=== PATIENT | female | born 1945 | race Caucasian/White ===

== ENCOUNTER 2019-05-08 21:58 | Outpatient (REF) | payer OTHER, SELFPAY ==
[2019-05-08 22:51] LABS: Hemoglobin A1C 6.5 % (4.5-6.2)
[2019-05-08 23:02] LABS: ALT 19 U/L (12-78); AST 19 U/L (15-37); Albumin 3.6 g/dL (3.4-5.0); Alkaline Phosphatase 121 U/L (46-116); Anion Gap 6.6 mmol/L (3-11); BUN 19 mg/dL (7-18); Bilirubin, Total 0.4 mg/dL (0.2-1.0); CO2 32.4 mmol/L (21.0-32.0); Calcium 9.7 mg/dL (8.5-10.1); Calculated LDL 95 mg/dL; Chloride 100 mmol/L (98-107); Cholesterol 186 mg/dL (50-200); Estimated GFR 48.82 (mL/min/1.73m2); Glucose 113 mg/dL (70-100); HDL Cholesterol 42 mg/dL (40-60); Potassium 5.8 mmol/L (3.5-5.1); Sodium 139 mmol/L (136-145); Total Protein 7.7 g/dL (6.4-8.2); Triglyceride 246 mg/dL (30-150)
== END 2019-05-08 22:18 ==
LOC: NCHCN 21:58
PROVIDERS: PCP Nurse Practitioner Family; Visit Provider Nurse Practitioner Family
DX: I10 Essential (primary) hypertension (principal); R73.09 Other abnormal glucose; E78.5 Hyperlipidemia, unspecified
CPT/HCPCS: 80053; 80061; 83721; 83036

== ENCOUNTER 2019-05-22 10:50 | Outpatient (REF) | payer OTHER, SELFPAY ==
[2019-05-22 20:32] LABS: Anion Gap 6.9 mmol/L (3-11); BUN 21 mg/dL (7-18); CO2 35.1 mmol/L (21.0-32.0); CREATININE 1.31 mg/dL (0.55-1.02); Calcium 9.8 mg/dL (8.5-10.1); Chloride 103 mmol/L (98-107); Estimated GFR 39.91 (mL/min/1.73m2); Glucose 152 mg/dL (70-100); Potassium 5.7 mmol/L (3.5-5.1); Sodium 145 mmol/L (136-145)
== END 2019-05-22 11:10 ==
LOC: NCHCN 10:50
PROVIDERS: PCP Nurse Practitioner Family; Visit Provider Nurse Practitioner Family
DX: Z86.39 Personal history of other endocrine, nutritional and metabolic disease (principal)
CPT/HCPCS: 80048

== ENCOUNTER 2019-06-12 12:24 | Outpatient (REF) | payer OTHER, SELFPAY ==
[2019-06-12 21:27] LABS: Anion Gap 6.9 mmol/L (3-11); BUN 21 mg/dL (7-18); CO2 32.1 mmol/L (21.0-32.0); CREATININE 1.12 mg/dL (0.55-1.02); Calcium 9.2 mg/dL (8.5-10.1); Chloride 101 mmol/L (98-107); Estimated GFR 47.82 (mL/min/1.73m2); Glucose 106 mg/dL (70-100); Potassium 4.7 mmol/L (3.5-5.1); Sodium 140 mmol/L (136-145)
== END 2019-06-12 12:44 ==
LOC: NCHCN 12:24
PROVIDERS: PCP Nurse Practitioner Family; Visit Provider Nurse Practitioner Family
DX: I10 Essential (primary) hypertension (principal); E11.9 Type 2 diabetes mellitus without complications; N18.3 Chronic kidney disease, stage 3 (moderate); E87.5 Hyperkalemia
CPT/HCPCS: 80048

== ENCOUNTER 2019-09-11 22:16 | Outpatient (REF) | payer OTHER, SELFPAY ==
[2019-09-11 23:09] LABS: COMMENT (LAB VIEW ONLY) 204.52 mg/dL; Microalb ug/mg Crea 9.4 ug/mg Cr
== END 2019-09-11 22:36 ==
LOC: NCHCN 22:16
PROVIDERS: PCP Nurse Practitioner Family; Visit Provider Nurse Practitioner Family
DX: E11.9 Type 2 diabetes mellitus without complications (principal); I10 Essential (primary) hypertension
CPT/HCPCS: 82043; 82570

== ENCOUNTER 2019-09-25 22:34 | Outpatient (REF) | payer OTHER, SELFPAY ==
[2019-09-25 22:52] LABS: Anion Gap 4.9 mmol/L (3-11); BUN 15 mg/dL (7-18); CO2 35.1 mmol/L (21.0-32.0); CREATININE 0.99 mg/dL (0.55-1.02); Calcium 9.3 mg/dL (8.5-10.1); Chloride 102 mmol/L (98-107); Estimated GFR 55.14 (mL/min/1.73m2); Glucose 97 mg/dL (74-106); Potassium 4.5 mmol/L (3.5-5.1); Sodium 142 mmol/L (136-145)
== END 2019-09-25 22:54 ==
LOC: NCHCN 22:34
PROVIDERS: PCP Nurse Practitioner Family; Visit Provider Nurse Practitioner Family
DX: I10 Essential (primary) hypertension (principal)
CPT/HCPCS: 80048

== ENCOUNTER 2020-08-12 15:56 | Outpatient (REF) | payer OTHER, SELFPAY ==
[2020-08-12 21:22] LABS: COMMENT (LAB VIEW ONLY) 193.17 mg/dL; Microalb ug/mg Crea 8.3 ug/mg Cr
[2020-08-12 21:29] LABS: Anion Gap 5.8 mmol/L (3-11); BUN 26 mg/dL (7-18); CO2 32.2 mmol/L (21.0-32.0); CREATININE 1.49 mg/dL (0.55-1.02); Calcium 9.2 mg/dL (8.5-10.1); Chloride 101 mmol/L (98-107); Glucose 121 mg/dL (74-106); Potassium 4.5 mmol/L (3.5-5.1); Sodium 139 mmol/L (136-145); Vitamin B12 248 pg/mL (193-986)
== END 2020-08-12 16:16 ==
LOC: NCHCN 15:56
PROVIDERS: PCP Nurse Practitioner Family; Visit Provider Nurse Practitioner Family
DX: E11.9 Type 2 diabetes mellitus without complications (principal); E66.01 Morbid (severe) obesity due to excess calories; I12.9 Hypertensive chronic kidney disease with stage 1 through stage 4 chronic kidney disease, or unspecified chronic kidney disease; N18.30 Chronic kidney disease, stage 3 unspecified; F32.9 Major depressive disorder, single episode, unspecified; Z51.81 Encounter for therapeutic drug level monitoring
CPT/HCPCS: 80048; 82043; 82570; 82607

== ENCOUNTER 2020-08-19 11:00 | Outpatient (REF) | payer OTHER, SELFPAY ==
[2020-08-19 21:20] LABS: Anion Gap 6.9 mmol/L (3-11); BUN 13 mg/dL (7-18); CO2 32.1 mmol/L (21.0-32.0); CREATININE 1.45 mg/dL (0.55-1.02); Calcium 9.2 mg/dL (8.5-10.1); Chloride 103 mmol/L (98-107); Glucose 104 mg/dL (74-106); Potassium 4.5 mmol/L (3.5-5.1); Sodium 142 mmol/L (136-145)
== END 2020-08-19 11:20 ==
LOC: NCHCN 11:00
PROVIDERS: PCP Nurse Practitioner Family; Visit Provider Nurse Practitioner Family
DX: N18.30 Chronic kidney disease, stage 3 unspecified (principal)
CPT/HCPCS: 80048

== ENCOUNTER 2021-02-17 14:10 | Outpatient (REF) | payer OTHER, SELFPAY ==
[2021-02-17 21:15] LABS: HCT 40.4 % (36.0-46.0); HGB 12.4 g/dL (11.2-15.7); MCH 28.8 pg (27.0-33.0); MCHC 30.7 % (32.0-36.0); MCV 93.7 fL (80-95); MPV 10.4 fL (8.0-11.0); Platelet Count 411 10^3/uL (130-400); RBC 4.31 10^6/uL (3.93-5.22); RDW 13.2 % (11.7-14.6); RDW-SD 45.5 fL; WBC 9.93 10^3/uL (4.4-10.8)
[2021-02-17 21:33] LABS: Anion Gap 8.6 mmol/L (3-11); BUN 18 mg/dL (7-18); CO2 30.4 mmol/L (21.0-32.0); CREATININE 1.5 mg/dL (0.55-1.02); Calcium 9.5 mg/dL (8.5-10.1); Chloride 102 mmol/L (98-107); Estimated GFR 34.04 (mL/min/1.73m2); Glucose 113 mg/dL (74-106); Magnesium 1.7 mg/dL (1.8-2.4); Potassium 4.9 mmol/L (3.5-5.1); Sodium 141 mmol/L (136-145)
[2021-02-17 21:44] LABS: PHOSPHORUS 3.5 mg/dL (2.6-4.7)
[2021-02-17 21:45] LABS: PROTEIN 29.4 mg/dL
[2021-02-17 21:48] LABS: COMMENT (LAB VIEW ONLY) 333.42 mg/dL; Prot/Crea Ur Ratio 0.08
== END 2021-02-17 14:11 | disposition home or self-care (01) ==
LOC: NCHCN 14:10
PROVIDERS: PCP Nurse Practitioner Family; Visit Provider Nurse Practitioner Family
DX: N18.30 Chronic kidney disease, stage 3 unspecified (principal)
CPT/HCPCS: 80048; 85027; 82565; 83735; 84100; 84156

== ENCOUNTER 2021-05-26 11:19 | Outpatient (REF) | payer OTHER, SELFPAY ==
[2021-05-26 20:58] LABS: BUN 22 mg/dL (7-18); CREATININE 1.4 mg/dL (0.55-1.02); Calcium 9.4 mg/dL (8.5-10.1); Chloride 103 mmol/L (98-107); Estimated GFR 36.76 (mL/min/1.73m2); Glucose 115 mg/dL (74-106); Potassium 4.9 mmol/L (3.5-5.1); Sodium 142 mmol/L (136-145)
== END 2021-05-26 11:20 | disposition home or self-care (01) ==
LOC: NCHCN 11:19
PROVIDERS: PCP Nurse Practitioner Family; Visit Provider Nurse Practitioner Family
DX: E11.9 Type 2 diabetes mellitus without complications (principal); N18.30 Chronic kidney disease, stage 3 unspecified
CPT/HCPCS: 80048

== ENCOUNTER 2021-07-14 16:51 | Outpatient (REF) | payer OTHER, SELFPAY ==
[2021-07-14 22:38] LABS: Anion Gap 2.9 mmol/L (3-11); BUN 17 mg/dL (7-18); CO2 34.1 mmol/L (21.0-32.0); CREATININE 1.5 mg/dL (0.55-1.02); Calcium 9.5 mg/dL (8.5-10.1); Chloride 104 mmol/L (98-107); Estimated GFR 33.94 (mL/min/1.73m2); Glucose 93 mg/dL (74-106); Magnesium 1.8 mg/dL (1.8-2.4); Sodium 141 mmol/L (136-145)
[2021-07-14 22:40] LABS: COMMENT (LAB VIEW ONLY) 183.37 mg/dL; Microalb ug/mg Crea 12.5 ug/mg Cr
[2021-07-14 23:09] LABS: Hemoglobin A1C 6.1 % (<5.7)
== END 2021-07-14 16:52 | disposition home or self-care (01) ==
LOC: NCHCN 16:51
PROVIDERS: PCP Nurse Practitioner Family; Visit Provider Nurse Practitioner Family
DX: E11.9 Type 2 diabetes mellitus without complications (principal)
CPT/HCPCS: 80048; 82043; 82570; 83036; 83735

== ENCOUNTER 2021-10-05 10:25 | Outpatient (REF) | payer OTHER, SELFPAY ==
[2021-10-05 15:24] LABS: Anion Gap 5.6 mmol/L (3-11); BUN 21 mg/dL (7-18); CO2 32.4 mmol/L (21.0-32.0); CREATININE 1.1 mg/dL (0.55-1.02); Calcium 9.3 mg/dL (8.5-10.1); Chloride 102 mmol/L (98-107); Estimated GFR 48.55 (mL/min/1.73m2); Glucose 121 mg/dL (74-106); Potassium 4.7 mmol/L (3.5-5.1); Sodium 140 mmol/L (136-145)
== END 2021-10-05 10:26 | disposition home or self-care (01) ==
LOC: NCHCN 10:25
PROVIDERS: PCP Nurse Practitioner Family; Visit Provider Nurse Practitioner Family
DX: N18.30 Chronic kidney disease, stage 3 unspecified (principal)
CPT/HCPCS: 80048

== ENCOUNTER 2022-01-05 15:12 | Outpatient (REF) | payer OTHER, SELFPAY ==
[2022-01-05 16:52] LABS: HCT 38.5 % (36.0-46.0); HGB 11.2 g/dL (11.2-15.7); MCH 26.1 pg (27.0-33.0); MCHC 29.1 % (32.0-36.0); MCV 89.7 fL (80-95); MPV 10.6 fL (8.0-11.0); Platelet Count 417 10^3/uL (130-400); RBC 4.29 10^6/uL (3.93-5.22); RDW 14.5 % (11.7-14.6); RDW-SD 47.8 fL; WBC 9.56 10^3/uL (4.4-10.8)
[2022-01-05 17:16] LABS: ALT 13 U/L (14-59); AST 11 U/L (15-37); Albumin 3.4 g/dL (3.4-5.0); Alkaline Phosphatase 157 U/L (46-116); BUN 13 mg/dL (7-18); Bilirubin, Total 0.3 mg/dL (0.2-1.0); CREATININE 1.2 mg/dL (0.55-1.02); Calcium 9.2 mg/dL (8.5-10.1); Calculated LDL 93 mg/dL (<100); Chloride 103 mmol/L (98-107); Cholesterol 179 mg/dL (<200); Estimated GFR 43.91 (mL/min/1.73m2); Glucose 111 mg/dL (74-106); HDL Cholesterol 46 mg/dL (40-60); Potassium 4.7 mmol/L (3.5-5.1); Sodium 143 mmol/L (136-145); Total Protein 7.3 g/dL (6.4-8.2); Triglyceride 204 mg/dL (<150)
== END 2022-01-05 15:13 | disposition home or self-care (01) ==
LOC: NCHCN 15:12
PROVIDERS: PCP Nurse Practitioner Family; Visit Provider Nurse Practitioner Family
DX: E11.9 Type 2 diabetes mellitus without complications (principal); I10 Essential (primary) hypertension; I25.10 Atherosclerotic heart disease of native coronary artery without angina pectoris; E78.5 Hyperlipidemia, unspecified; E66.01 Morbid (severe) obesity due to excess calories
CPT/HCPCS: 80053; 80061; 85027

== ENCOUNTER 2022-04-02 17:03 | Outpatient (REF) | payer MEDICARE, SELFPAY ==
[2022-04-02 21:13] LABS: Alkaline Phosphatase 177 U/L (46-116); Calculated LDL 65 mg/dL (<100); Cholesterol 150 mg/dL (<200); HDL Cholesterol 47 mg/dL (40-60); Triglyceride 192 mg/dL (<150)
[2022-04-02 21:24] LABS: GGT 19 U/L (5-55)
== END 2022-04-02 17:04 | disposition home or self-care (01) ==
LOC: NCHCN 17:03
PROVIDERS: PCP Nurse Practitioner Family; Visit Provider Nurse Practitioner Family
DX: E78.5 Hyperlipidemia, unspecified (principal); N18.30 Chronic kidney disease, stage 3 unspecified; E11.9 Type 2 diabetes mellitus without complications; Z86.39 Personal history of other endocrine, nutritional and metabolic disease; E66.2 Morbid (severe) obesity with alveolar hypoventilation
CPT/HCPCS: 80061; 82977; 84075

== ENCOUNTER 2022-04-21 18:09 | Outpatient (REF) | payer MEDICARE, SELFPAY ==
[2022-04-21 22:18] LABS: PHOSPHORUS 3.9 mg/dL (2.6-4.7); TSH 2.18 uIU/mL (0.36-3.74)
[2022-04-22 05:30] LABS: Vitamin D 25 Total 34.3 ng/mL (30-100)
[2022-04-22 18:31] LABS: Parathyroid Hormone,Intact 181 pg/mL (19-88)
== END 2022-04-21 18:10 | disposition home or self-care (01) ==
LOC: NCHCN 18:09
PROVIDERS: PCP Nurse Practitioner Family; Visit Provider Nurse Practitioner Family
DX: R74.8 Abnormal levels of other serum enzymes (principal); Z13.228 Encounter for screening for other metabolic disorders; Z13.89 Encounter for screening for other disorder
CPT/HCPCS: 82306; 83970; 84100; 84443

== ENCOUNTER 2022-12-28 22:03 | Outpatient (REF) | payer MEDICARE, SELFPAY ==
--- OUTSIDE RECORDS SUMMARY | 2022-12-28 22:04 | XMS_ITS | CCD ---
Author Name Unknown Address [address] [place] [address] [id number] Organization Unknown Address [address] [place] [address] [id number] Care Team Providers Care Senior Interior Designer Name Role Phone VINAYAK RUELAS Attending Physician [phone] JOSE STEWART Er Physician [phone] EDGAR Blacno Registered Nurse [phone] HANNAH Blanco Registered Nurse [phone] Vital Signs Vital Sign Value Unit Date/Time Recent/Initial ? BMI (Body Mass Index) 50 kg/m^2 10/05/2021 11: 18 Initial VS Weight Measured 256 lbs 10/05/2021 11:18 Ini tial VS Height 60 in 10/05/2021 11:18 Initial VS BSA (Body Surface Area) 2.22 m^2 10/05/2021 1 1:18 Initial VS BP Systolic 173 mmHg 10/05/2021 11:18 Initial VS BP Diastolic 95 mmHg 10/05/2021 11:18 Initia l VS Respiratory Rate 14 bpm 10/05/2021 11:18 In itial VS Heart Rate 85 bpm 10/05/2021 11:18 Initial VS O2 % BldC Oximetry 98 % 10/05/2021 11:18 Initial VS Body Temperature 36.4 degrees 10/05/2021 11:18 In itial VS BP Systolic 150 mmHg 10/05/2021 11:47 Most Re cent VS BP Diastolic 90 mmHg 10/05/2021 11:47 Most R ecent VS Respiratory Rate 16 bpm 10/05/2021 11:[address] Recent VS Heart Rate 79 bpm 10/05/2021 11:47 Most Rec ent VS O2 % BldC Oximetry 100 % 10/05/2021 11:47 Most Recent VS Allergies Allergy Code Allergy Type Reaction Status No Known Allergies 0 No known allergies Active Procedures Procedure Code Procedure Type Date Closed Treatment, Shoulder D islocation, w/Manipulation; Requiring Anesthesia 99561 CPT History of Immunizations Immunization Code Date COVID-19, mRNA, LNP-S, PF, 100 mcg/0.5mL dose or 50 mcg/0.25mL dose 207 12/08/2020 Problems Problem Code Start Date Resolved Date Status Hypertension 55439492 Active Closed right shoulder dislocation 21568800705198510 Active Hypoxia 782094841 Active Hypercholesterolemia 29644520 10/23/2021 Reso lved Prediabetes 745507028 10/22/2021 Resolved High cholesterol 79101575 10/22/2021 Resolved Results Unknown or Not Available. Active Medications Medications Administered During Visit Medication Dose Units Frequency Route Date/Time of Last Dose FentaNYL INJ SDV: 100MCG/2ML 25 MCG X1 I [employer] SALESPERSON 10/05/2021 11:47 DIAZEPAM INJ SYRINGE: 10MG/2ML 2.5 MG X1 IVP 10/05/2021 11:42 Encounters Encounter Diagnosis Diagnosis Code Start Date Anterior subluxation of right humerus, initial e ncounter [id number] 10/05/2021 Social History Smoking Status Code Start Date End Date Never smoker [id number] Patient Decision Aids Unknown or Not Available. Discharge Instructions You were admitted to [facility] on 10/05/2021 11:14 with a principal diagnosis of Anterior subluxation of right humerus, initial encounter You had the following procedures done:Closed Treatment, Shoulder Dislocation, w/Manipulation; Requiring Anesthesia You were discharged from [facility] on 10/05/2021 15:40 Should you have any questions prior to discharge, please contact a member of your healthcare team. If you have left the hospital and have any questions, please contact your primary care physician. Chief Complaint and Reason For Visit Chief Complaint Date of Onset DISLOCATED SHOULDER Function Status Unknown or Not Available. Plan of Care Unknown or Not Available. Referral/Transition of Care Unknown or Not Available.
--- OUTSIDE RECORDS SUMMARY | 2022-12-28 22:05 | XMS_ITS | CCD ---
Author Name Unknown Address [address] [place] [address] [phone] Organization Unknown Address [address] [place] [address] [phone] Care Team Providers Care Permastone Installer Name Role Phone ALICIA WU Attending Physician [phone] ALICIA WU Rounding (Secondary) Physician [phone] Vital Signs Unknown or Not Available. Allergies Allergy Code Allergy Type Reaction Status No Known Allergies 0 No known allergies Active Procedures Unknown or Not Available. History of Immunizations Immunization Code Date COVID-19, mRNA, LNP-S, PF, 100 mcg/0.5mL dose or 50 mcg/0.25mL dose 207 12/08/2020 Problems Problem Code Start Date Resolved Date Status Hypertension 45906595 Active Closed right shoulder dislocation 94002072508859858 Active Hypoxia 642299593 Active Hypercholesterolemia 05463641 10/23/2021 Reso lved Prediabetes 820438125 10/22/2021 Resolved High cholesterol 16984827 10/22/2021 Resolved Results BASIC METABOLIC PANEL (BMP) - Collect Date/Time: 10/19/2021 14:24 Test Name Code Test Result Test Units Test Ref Rang e GLUCOSE 2345-7 100 mg/dL L=70 H=116 BUN 3094-0 20 mg/dL L=6 H=25 CREATININE 2160-0 1.32 mg/dL L=0.51 H=0.95 SODIUM SERUM 2951-2 143 mmol/L L=136 H=145 POTASSIUM SERUM 2823-3 4.5 mmol/L L=3.4 H=5 .2 CHLORIDE SERUM 2075-0 103 mmol/L L=96 H=110 CARBON DIOXIDE (CO2) 2028-9 35 mmol/L L=22 H=34 ANION GAP 93071-0 5.3 mmol/L CALCIUM SERUM 16548-5 9.8 mg/dL L=8.2 H=10. 2 AGE 76 years eGFR (non-Afr.Amer.) 69850-4 39 mL/min eGFR (Afr-Chilean) 25694-4 48 mL/min C REACTIVE PROTEIN HIGH SENS ITIVITY* - Collect Date/Time: 10/19/2021 14:24 Test Name Code Test Result Test Units Test Ref Rang e CRP-HIGH SENS. 02510-7 18.52 mg/L L=0.00 H=3 .00 CRP-HIGH SENS 67930-3 1.85 mg/dL L=0.00 H=0. 30 CBC W/ DIFFERENTIAL* - Colle ct Date/Time: 10/19/2021 14:24 Test Name Code Test Result Test Units Test Ref Rang e WBC 6690-2 10.88 th/cmm L=5.00 H=10.00 NEUT % 71.6 % L=40.0 H=80.0 LYMPH % 19.7 % L=10.0 H=50.0 MONO % 20703-0 6.3 % L=2.0 H=12.0 EOS % 1.2 % L=0.0 H=8.0 BASO % 0.5 % L=0.0 H=3.0 IG % 2514-8 0.7 % L=0.0 H=1.1 NRBC % 32994-4 0.0 % L=0.0 H=0.0 NEUT abs count 751-8 7.8 th/cmm L=1.6 H=8. 4 LYMPH abs count 731-0 2.1 th/cmm L=1.5 H=4 .0 MONO abs count 742-7 0.7 th/cmm L=0.2 H=1. 0 EOS abs count 711-2 0.1 th/cmm L=0.0 H=0.5 BASO abs count 704-7 0.1 th/cmm L=0.0 H=0. 2 IG abs count 38993-7 0.1 th/cmm L=0.0 H=0.1 NRBC abs count 91966-1 0.0 mil/cmm L=0.0 H=0. 0 RBC 789-8 4.50 mil/cmm L=3.90 H=5.40 HEMOGLOBIN 718-7 12.5 gm/dL L=12.0 H=16.0 HEMATOCRIT 4544-3 41 % L=37 H=47 MCV 787-2 91 fL L=82 H=92 MCH 785-6 27.8 pg L=27.0 H=31.0 MCHC 786-4 30.4 % L=32.0 H=36.0 RDW-SD 788-0 46.7 fL L=39.0 H=49.0 PLATELET COUNT 777-3 472 th/cmm L=150 H=45 0 SED RATE* - Collect Date/Darrell e: 10/19/2021 14:24 Test Name Code Test Result Test Units Test Ref Rang e SED. RATE 4537-7 16 mm/hr L=0 H=30 MRSA/MSSA NASAL COMPLETE BY PCR* - Collect Date/Time: 10/19/2021 14:24 Test Name Code Test Result Test Units Test Ref Rang e MRSA 82975-4 NEGATIVE N/A Normal: Negati ve MSSA NEGATIVE N/A Normal: Negati ve Active Medications Medication Code Dose Units Frequency Route Modificatio n Start Date/Time Acetaminophen 500MG Oral Tablet 907731 2 TABLET NEEDED THREE TIMES A DAY ORAL 10/25/2021 13:54 Prescription Detail TAKE 2 TABLET ORAL A S NEEDED THREE TIMES A DAY FOR PAIN amLODIPine Besylate 5MG Oral Tablet 874584 5 MILLIGRAMS DAILY ORAL 13:49 Prescription Detail TAKE 5 MILLIGRAMS OR AL DAILY hydroCHLOROthiazide 12.5MG Oral Tablet 340551 12.5 MILLIGRAMS DAILY ORAL 10/25/2021 13:49 Prescription Detail TAKE 12.5 MILLIGRAMS ORAL DAILY Lisinopril 10MG Oral Tablet 251563 10 MILLIGRAMS DAILY ORAL 13:49 Prescription Detail TAKE 10 MILLIGRAMS O RAL DAILY Lovastatin 20MG Oral Tablet 349052 20 MILLIGRAMS EVERY EVENING ORAL 10/25/2021 13:49 Prescription Detail TAKE 20 MILLIGRAMS O RAL EVERY EVENING metFORMIN HCl 500MG Oral Tablet 557449 500 MILLIGRAMS TWICE A DAY ORAL 10/25/2021 13:49 Prescription Detail TAKE 500 MILLIGRAMS ORAL TWICE A DAY PARoxetine HCl 20MG Oral Tablet 9291854 20 MILLIGRAMS DAILY ORAL 022 13:49 Prescription Detail TAKE 20 MILLIGRAMS O RAL DAILY Medications Administered During Visit Unknown or Not Available. Encounters Encounter Diagnosis Diagnosis Code Start Date Dislocation of shoulder joint [id number] Social History Smoking Status Code Start Date End Date Never smoker 590941947 Patient Decision Aids Unknown or Not Available. Discharge Instructions You were admitted to [facility] on 10/19/2021 14:33 with a principal diagnosis of Unspecified dislocation of right shoulder joint, subsequent encounter You had the following tests done:BASIC METABOLIC PANEL (BMP)C REACTIVE PROTEIN HIGH SENSITIVITY*CBC W/ DIFFERENTIAL*MRSA/MSSA NASAL COMPLETE BY PCR*SED RATE* You were discharged from [facility] on 10/19/2021 00:00 Should you have any questions prior to discharge, please contact a member of your healthcare team. If you have left the hospital and have any questions, please contact your primary care physician. Chief Complaint and Reason For Visit Unknown or Not Available. Function Status Unknown or Not Available. Plan of Care Unknown or Not Available. Referral/Transition of Care Unknown or Not Available.
--- OUTSIDE RECORDS SUMMARY | 2022-12-28 22:05 | XMS_ITS | CCD ---
Author Name Unknown Address [address] [place] [address] [id number] Organization Unknown Address [address] [place] [address] [phone] Care Team Providers Care Assorter Name Role Phone TEVIN LOZADA Attending Physician [phone] TEVIN LOZADA Rounding (Secondary) Physic lyudmila [phone] Vital Signs Unknown or Not Available. Allergies Allergy Code Allergy Type Reaction Status No Known Allergies 0 No known allergies Active Procedures Unknown or Not Available. History of Immunizations Immunization Code Date COVID-19, mRNA, LNP-S, PF, 100 mcg/0.5mL dose or 50 mcg/0.25mL dose 207 12/08/2020 Problems Problem Code Start Date Resolved Date Status Hypertension 61006279 Active Closed right shoulder dislocation 49460979125720173 Active Hypoxia 292459559 Active Hypercholesterolemia 14641970 10/23/2021 Reso lved Prediabetes 596942441 10/22/2021 Resolved High cholesterol 03216834 10/22/2021 Resolved Results Unknown or Not Available. Active Medications Medication Code Dose Units Frequency Route Modificatio n Start Date/Time Acetaminophen 500MG Oral Tablet 042465 2 TABLET NEEDED THREE TIMES A DAY ORAL 10/25/2021 13:54 Prescription Detail TAKE 2 TABLET ORAL A S NEEDED THREE TIMES A DAY FOR PAIN amLODIPine Besylate 5MG Oral Tablet 548507 5 MILLIGRAMS DAILY ORAL 13:49 Prescription Detail TAKE 5 MILLIGRAMS OR AL DAILY hydroCHLOROthiazide 12.5MG Oral Tablet 306811 12.5 MILLIGRAMS DAILY ORAL 10/25/2021 13:49 Prescription Detail TAKE 12.5 MILLIGRAMS ORAL DAILY Lisinopril 10MG Oral Tablet 117784 10 MILLIGRAMS DAILY ORAL 022 13:49 Prescription Detail TAKE 10 MILLIGRAMS O RAL DAILY Lovastatin 20MG Oral Tablet 042591 20 MILLIGRAMS EVERY EVENING ORAL 10/25/2021 13:49 Prescription Detail TAKE 20 MILLIGRAMS O RAL EVERY EVENING metFORMIN HCl 500MG Oral Tablet 447034 500 MILLIGRAMS TWICE A DAY ORAL 10/25/2021 13:49 Prescription Detail TAKE 500 MILLIGRAMS ORAL TWICE A DAY PARoxetine HCl 20MG Oral Tablet 3024907 20 MILLIGRAMS DAILY ORAL 022 13:49 Prescription Detail TAKE 20 MILLIGRAMS O RAL DAILY Medications Administered During Visit Unknown or Not Available. Encounters Encounter Diagnosis Diagnosis Code Start Date Dislocation of shoulder joint [id number] Social History Smoking Status Code Start Date End Date Never smoker 647339657 Patient Decision Aids Unknown or Not Available. Discharge Instructions You were admitted to [facility] on 10/14/2021 16:03 with a principal diagnosis of Dislocation of shoulder You were discharged from [facility] on 10/14/2021 00:00 Should you have any questions prior [...]
--- OUTSIDE RECORDS SUMMARY | 2022-12-28 22:05 | XMS_ITS | CCD ---
Author Name Unknown Address [address] [place] [address] [id number] Organization Unknown Address [address] [place] [address] [phone] Care Team Providers Care Drafter Geophysical Name Role Phone ALICIA WU Attending Physician [phone] Vital Signs Vital Sign Value Unit Date/Time Recent/Initial ? BP Systolic 109 mmHg 10/22/2021 17:30 Initial VS BP Diastolic 56 mmHg 10/22/2021 17:30 Initia l VS Respiratory Rate 21 bpm 10/22/2021 17:30 In itial VS Heart Rate 79 bpm 10/22/2021 17:30 Initial VS O2 % BldC Oximetry 95 % 10/22/2021 17:30 Initial VS Body Temperature 36.2 degrees 10/22/2021 17:30 In itial VS Allergies Allergy Code Allergy Type Reaction Status No Known Allergies 0 No known allergies Active Procedures Procedure Code Procedure Type Date Repair, Ruptured Musculotendinous Cuff, Open; Acute 23 410 CPT 10/22/2021 Injection Anesthetic Agent a nd/or Steroid; Brachial Plexus 49279 CPT 10/22/2021 Anesthesia, Open/Surg Arthro scopic Proc, Humeral Head & Neck, Sternoclav/AC/Shoulder Jt; NOS 16923 CPT 0 10/22/2021 History of Immunizations Immunization Code Date COVID-19, mRNA, LNP-S, PF, 100 mcg/0.5mL dose or 50 mcg/0.25mL dose 207 12/08/2020 Problems Problem Code Start Date Resolved Date Status Hypertension 52239752 Active Closed right shoulder dislocation 65451722727336191 Active Hypoxia 219710472 Active Hypercholesterolemia 63495677 10/23/2021 Reso lved Prediabetes 031039326 10/22/2021 Resolved High cholesterol 08963712 10/22/2021 Resolved Results Unknown or Not Available. Active Medications Medications Administered During Visit Medication Dose Units Frequency Route Date/Time of Last Dose LACTATED RINGERS 1000ML 1000 ML X1 10/22/2021 11:12 CeFAZolin IVPB FROZEN PREMIX : 2GM/100ML 2 GM X1 10/22/2021 13:3 0 PREGABALIN CAPSULE: 50MG 100 MG X1 PO 10/22/2021 11:13 CELECOXIB CAPSULE: 100MG 200 MG X1 PO 10/22/2021 11:12 MIDAZOLAM INJ SDV: 2MG/2ML 2 MG X1 IVP 10/22/2021 12:59 LACTATED RINGERS 1000ML 1000 ML CONT IN PACU 10/22/2021 15:51 Encounters Encounter Diagnosis Diagnosis Code Start Date Anterior dislocation of right humerus, initial e ncounter [id number] 10/22/2021 Social History Smoking Status Code Start Date End Date Never smoker 366030308 Patient Decision Aids Unknown or Not Available. Discharge Instructions You were admitted to [facility] on 10/22/2021 10:22 with a principal diagnosis of Anterior dislocation of right humerus, initial encounter You had the following procedures done:Repair, Ruptured Musculotendinous Cuff, Open; AcuteInjection Anesthetic Agent and/or Steroid; Brachial PlexusAnesthesia, Open/Surg Arthroscopic Proc, Humeral Head & Neck, Sternoclav/AC/Shoulder Jt; NOS You were discharged from [facility] on 10/22/2021 17:10 Should you have any questions prior to discharge, please contact a member of your healthcare team. If you have left the hospital and have any questions, please contact your primary care physician. Chief Complaint and Reason For Visit Chief Complaint Date of Onset RIGHT SHOULDER RTC REPAIR VS REVERSE TOT AL SHOULDER 120MIN OP Function Status Unknown or Not Available. Plan of Care Unknown or Not Available. Referral/Transition of Care Unknown or Not Available.
--- OUTSIDE RECORDS SUMMARY | 2022-12-28 22:05 | XMS_ITS | CCD ---
Author Name Unknown Address [address] [place] [address] [id number] Organization Unknown Address [address] [place] [address] [phone] Care Team Providers Care Production Crew Supervisor Name Role Phone MARKOS ADAMS Attending Physician [phone] Vital Signs Unknown or Not Available. Allergies Allergy Code Allergy Type Reaction Status No Known Allergies 0 No known allergies Active Procedures Unknown or Not Available. History of Immunizations Immunization Code Date COVID-19, mRNA, LNP-S, PF, 100 mcg/0.5mL dose or 50 mcg/0.25mL dose 207 12/08/2020 Problems Problem Code Start Date Resolved Date Status Hypertension 98835768 Active Closed right shoulder dislocation 32571098631972225 Active Hypoxia 744346388 Active Hypercholesterolemia 68896608 10/23/2021 Reso lved Prediabetes 030240777 10/22/2021 Resolved High cholesterol 53849168 10/22/2021 Resolved Results Unknown or Not Available. Active Medications Medication Code Dose Units Frequency Route Modificatio n Start Date/Time Acetaminophen 500MG Oral Tablet 224997 2 TABLET NEEDED THREE TIMES A DAY ORAL 10/25/2021 13:54 Prescription Detail TAKE 2 TABLET ORAL A S NEEDED THREE TIMES A DAY FOR PAIN amLODIPine Besylate 5MG Oral Tablet 177278 5 MILLIGRAMS DAILY ORAL 13:49 Prescription Detail TAKE 5 MILLIGRAMS OR AL DAILY hydroCHLOROthiazide 12.5MG Oral Tablet 602203 12.5 MILLIGRAMS DAILY ORAL 10/25/2021 13:49 Prescription Detail TAKE 12.5 MILLIGRAMS ORAL DAILY Lisinopril 10MG Oral Tablet 638053 10 MILLIGRAMS DAILY ORAL 022 13:49 Prescription Detail TAKE 10 MILLIGRAMS O RAL DAILY Lovastatin 20MG Oral Tablet 353760 20 MILLIGRAMS EVERY EVENING ORAL 10/25/2021 13:49 Prescription Detail TAKE 20 MILLIGRAMS O RAL EVERY EVENING metFORMIN HCl 500MG Oral Tablet 863659 500 MILLIGRAMS TWICE A DAY ORAL 10/25/2021 13:49 Prescription Detail TAKE 500 MILLIGRAMS ORAL TWICE A DAY PARoxetine HCl 20MG Oral Tablet 4792271 20 MILLIGRAMS DAILY ORAL 022 13:49 Prescription Detail TAKE 20 MILLIGRAMS O RAL DAILY Medications Administered During Visit Unknown or Not Available. Encounters Encounter Diagnosis Diagnosis Code Start Date Anterior subluxation of right humerus, initial e ncounter [id number] 10/05/2021 Social History Smoking Status Code Start Date End Date Never smoker 399635797 Patient Decision Aids Unknown or Not Available. Discharge Instructions You were admitted to [facility] on 10/05/2021 10:28 with a principal diagnosis of Anterior subluxation of right humerus, initial encounter You were discharged from [facility] on 10/05/2021 10:28 Should you have any questions prior to [...]
--- OUTSIDE RECORDS SUMMARY | 2022-12-28 22:06 | XMS_ITS | CCD ---
Author Name Unknown Address [address] [place] [address] [phone] Organization Unknown Address [address] [place] [address] [phone] Care Team Providers Care Launch Commander [employer] Name Role Phone ELICIA AMIN Attending Physician [phone] ELICIA AMIN Er Physician 3 [phone] PALOMO WIN (Secondary) Physician [phone] OKSANA Levi Registered Nurse [phone] Vital Signs Vital Sign Value Unit Date/Time Recent/Initial ? BMI (Body Mass Index) 50.39 kg/m^2 10/14/2021 16: 00 Initial VS Weight Measured 258 lbs 10/14/2021 16:00 Ini tial VS Height 60 in 10/14/2021 16:00 Initial VS BSA (Body Surface Area) 2.23 m^2 10/14/2021 1 6:00 Initial VS BP Systolic 140 mmHg 10/14/2021 16:00 Initial VS BP Diastolic 71 mmHg 10/14/2021 16:00 Initia l VS Respiratory Rate 18 bpm 10/14/2021 16:00 In itial VS Heart Rate 97 bpm 10/14/2021 16:00 Initial VS O2 % BldC Oximetry 92 % 10/14/2021 16:00 Initial VS Body Temperature 35.8 degrees 10/14/2021 16:00 In itial VS BP Systolic 131 mmHg 10/14/2021 18:00 Most Re cent VS BP Diastolic 71 mmHg 10/14/2021 18:00 Most R ecent VS Respiratory Rate 16 bpm 10/14/2021 18:[address] Recent VS Heart Rate 68 bpm 10/14/2021 18:00 Most Rec ent VS O2 % BldC Oximetry 99 % 10/14/2021 18:00 Most Recent VS Allergies Allergy Code Allergy Type Reaction Status No Known Allergies 0 No known allergies Active Procedures Procedure Code Procedure Type Date Emergency Department Visit Moderate Severity 98679 CPT 10/14/2021 Emergency Department Visit High/Urgent Severity 67620 CPT 10/14/2021 Closed Treatment, Shoulder D islocation, w/Manipulation; Requiring Anesthesia 36695 CPT 02/2022 History of Immunizations Immunization Code Date COVID-19, mRNA, LNP-S, PF, 100 mcg/0.5mL dose or 50 mcg/0.25mL dose 207 12/08/2020 Problems Problem Code Start Date Resolved Date Status Hypertension 90575794 Active Closed right shoulder dislocation 09613874451159330 Active Hypoxia 451449727 Active Hypercholesterolemia 93764620 10/23/2021 Reso lved Prediabetes 093211890 10/22/2021 Resolved High cholesterol 56076486 10/22/2021 Resolved Results Unknown or Not Available. Active Medications Medications Administered During Visit Medication Dose Units Frequency Route Date/Time of Last Dose KETAMINE INJ MDV 5ML: 100MG/ML 50 MG X1 10/14/2021 16:50 KETAMINE INJ MDV 5ML: 100MG/ML 50 MG X1 10/14/2021 16:50 Encounters Encounter Diagnosis Diagnosis Code Start Date Anterior dislocation of right humerus, initial e ncounter [id number] 10/14/2021 Social History Smoking Status Code Start Date End Date Never smoker 721035750 Patient Decision Aids Unknown or Not Available. Discharge Instructions You were admitted to [facility] on 10/14/2021 15:39 with a principal diagnosis of Anterior dislocation of right humerus, initial encounter You had the following procedures done:Emergency Department Visit Moderate SeverityEmergency Department Visit High/Urgent SeverityClosed Treatment, Shoulder Dislocation, w/Manipulation; Requiring Anesthesia You were discharged from [facility] on 10/14/2021 18:00 Should you have any questions prior to discharge, please contact a member of your healthcare team. If you have left the hospital and have any questions, please contact your primary care physician. Chief Complaint and Reason For Visit Chief Complaint Date of Onset SHOULDER INJURY Function Status Unknown or Not Available. Plan of Care Unknown or Not Available. Referral/Transition of Care Unknown or Not Available.
--- OUTSIDE RECORDS SUMMARY | 2022-12-28 22:06 | XMS_ITS | CCD ---
Author Name Unknown Address [address] [place] [address] [id number] Organization Unknown Address [address] [place] [address] [id number] Care Team Providers Care Application Packaging Consultant Name Role Phone ALICIA WU Attending Physician [phone] ALICIA WU Rounding (Secondary) Physician [phone] Vital Signs Unknown or Not Available. Allergies Allergy Code Allergy Type Reaction Status No Known Allergies 0 No known allergies Active Procedures Unknown or Not Available. History of Immunizations Immunization Code Date COVID-19, mRNA, LNP-S, PF, 100 mcg/0.5mL dose or 50 mcg/0.25mL dose 207 12/08/2020 Problems Problem Code Start Date Resolved Date Status Hypertension 15964577 Active Closed right shoulder dislocation 43268274020228373 Active Hypoxia 362681266 Active Results Unknown or Not Available. Active Medications Medication Code Dose Units Frequency Route Modificatio n Start Date/Time Acetaminophen 500MG Oral Tablet 622229 2 TABLET NEEDED THREE TIMES A DAY ORAL 10/25/2021 13:54 Prescription Detail TAKE 2 TABLET ORAL A S NEEDED THREE TIMES A DAY FOR PAIN amLODIPine Besylate 5MG Oral Tablet 149818 5 MILLIGRAMS DAILY ORAL 13:49 Prescription Detail TAKE 5 MILLIGRAMS OR AL DAILY hydroCHLOROthiazide 12.5MG Oral Tablet 504010 12.5 MILLIGRAMS DAILY ORAL 10/25/2021 13:49 Prescription Detail TAKE 12.5 MILLIGRAMS ORAL DAILY Lisinopril 10MG Oral Tablet 667693 10 MILLIGRAMS DAILY ORAL 022 13:49 Prescription Detail TAKE 10 MILLIGRAMS O RAL DAILY Lovastatin 20MG Oral Tablet 106082 20 MILLIGRAMS EVERY EVENING ORAL 10/25/2021 13:49 Prescription Detail TAKE 20 MILLIGRAMS O RAL EVERY EVENING metFORMIN HCl 500MG Oral Tablet 379125 500 MILLIGRAMS TWICE A DAY ORAL 10/25/2021 13:49 Prescription Detail TAKE 500 MILLIGRAMS ORAL TWICE A DAY PARoxetine HCl 20MG Oral Tablet 9510177 20 MILLIGRAMS DAILY ORAL 022 13:49 Prescription Detail TAKE 20 MILLIGRAMS O RAL DAILY Medications Administered During Visit Unknown or Not Available. Encounters Encounter Diagnosis Diagnosis Code Start Date Follow-up orthopedic assessment [id number] 12/01/2021 Social History Smoking Status Code Start Date End Date Never smoker [id number] Patient Decision Aids Unknown or Not Available. Discharge Instructions You were admitted to [facility] on 12/01/2021 07:24 with a principal diagnosis of Encounter for other orthopedic aftercare You were discharged from [facility] on 12/01/2021 00:00 Should you have any questions prior [...]
--- OUTSIDE RECORDS SUMMARY | 2022-12-28 22:06 | XMS_ITS | CCD ---
Author Name Unknown Address [address] [place] [address] [phone] Organization Unknown Address [address] [place] [address] [phone] Care Team Providers Care Ground Source Heat Pump Technician Name Role Phone ALICIA WU Attending Physician [phone] Vital Signs Unknown or Not Available. Allergies Allergy Code Allergy Type Reaction Status No Known Allergies 0 No known allergies Active Procedures Unknown or Not Available. History of Immunizations Immunization Code Date COVID-19, mRNA, LNP-S, PF, 100 mcg/0.5mL dose or 50 mcg/0.25mL dose 207 12/08/2020 Problems Problem Code Start Date Resolved Date Status Hypertension 50273999 Active Closed right shoulder dislocation [id number] Active Hypoxia 640346210 Active Hypercholesterolemia 10508222 10/23/2021 Reso lved Prediabetes 069372656 10/22/2021 Resolved High cholesterol 98936402 10/22/2021 Resolved Results SUSAN FARAH* - Naila ect Date/Time: 10/21/2021 11:00 Test Name Code Test Result Test Units Test Ref Rang e Tier- PRE-OP N/A SARS COV2 RNA: 97401-9 NEGATIVE N/A REFERENCE RANGE: NEGAT Active Medications Medication Code Dose Units Frequency Route Modificatio n Start Date/Time Acetaminophen 500MG Oral Tablet 720062 2 TABLET NEEDED THREE TIMES A DAY ORAL 10/25/2021 13:54 Prescription Detail TAKE 2 TABLET ORAL A S NEEDED THREE TIMES A DAY FOR PAIN amLODIPine Besylate 5MG Oral Tablet 244482 5 MILLIGRAMS DAILY ORAL 13:49 Prescription Detail TAKE 5 MILLIGRAMS OR AL DAILY hydroCHLOROthiazide 12.5MG Oral Tablet 413986 12.5 MILLIGRAMS DAILY ORAL 10/25/2021 13:49 Prescription Detail TAKE 12.5 MILLIGRAMS ORAL DAILY Lisinopril 10MG Oral Tablet 340557 10 MILLIGRAMS DAILY ORAL 13:49 Prescription Detail TAKE 10 MILLIGRAMS O RAL DAILY Lovastatin 20MG Oral Tablet 078299 20 MILLIGRAMS EVERY EVENING ORAL 10/25/2021 13:49 Prescription Detail TAKE 20 MILLIGRAMS O RAL EVERY EVENING metFORMIN HCl 500MG Oral Tablet 556709 500 MILLIGRAMS TWICE A DAY ORAL 10/25/2021 13:49 Prescription Detail TAKE 500 MILLIGRAMS ORAL TWICE A DAY PARoxetine HCl 20MG Oral Tablet 0041758 20 MILLIGRAMS DAILY ORAL 13:49 Prescription Detail TAKE 20 MILLIGRAMS O RAL DAILY Medications Administered During Visit Unknown or Not Available. Encounters Encounter Diagnosis Diagnosis Code Start Date Pre-surgery testing [id number] 10/21/2021 Social History Smoking Status Code Start Date End Date Never smoker [id number] Patient Decision Aids Unknown or Not Available. Discharge Instructions You were admitted to [facility] on 10/21/2021 12:20 with a principal diagnosis of Encounter for preprocedural laboratory examination You had the following tests done:SUSAN WATSONX* You were discharged from [facility] on 10/21/2021 12:20 Should you have any questions prior to [...]
--- OUTSIDE RECORDS SUMMARY | 2022-12-28 22:06 | XMS_ITS | CCD ---
Author Name Unknown Address [address] [place] [address] [phone] Organization Unknown Address [address] [place] [address] [phone] Care Team Providers Care Central Control Room Operator Name Role Phone CHER GROVES Attending Physician [phone] CHER GROVES Rounding (Secondary) Physici an [phone] Vital Signs Unknown or Not Available. Allergies Allergy Code Allergy Type Reaction Status No Known Allergies 0 No known allergies Active Procedures Unknown or Not Available. History of Immunizations Immunization Code Date COVID-19, mRNA, LNP-S, PF, 100 mcg/0.5mL dose or 50 mcg/0.25mL dose 207 12/08/2020 Problems Problem Code Start Date Resolved Date Status Hypertension 37867277 Active Closed right shoulder dislocation [id number] Active Hypoxia 004807452 Active Results Unknown or Not Available. Active Medications Medication Code Dose Units Frequency Route Modificatio n Start Date/Time Acetaminophen 500MG Oral Tablet 851572 2 TABLET NEEDED THREE TIMES A DAY ORAL 10/25/2021 13:54 Prescription Detail TAKE 2 TABLET ORAL A S NEEDED THREE TIMES A DAY FOR PAIN amLODIPine Besylate 5MG Oral Tablet 713847 5 MILLIGRAMS DAILY ORAL 13:49 Prescription Detail TAKE 5 MILLIGRAMS OR AL DAILY hydroCHLOROthiazide 12.5MG Oral Tablet 163278 12.5 MILLIGRAMS DAILY ORAL 10/25/2021 13:49 Prescription Detail TAKE 12.5 MILLIGRAMS ORAL DAILY Lisinopril 10MG Oral Tablet 896290 10 MILLIGRAMS DAILY ORAL 022 13:49 Prescription Detail TAKE 10 MILLIGRAMS O RAL DAILY Lovastatin 20MG Oral Tablet 546612 20 MILLIGRAMS EVERY EVENING ORAL 10/25/2021 13:49 Prescription Detail TAKE 20 MILLIGRAMS O RAL EVERY EVENING metFORMIN HCl 500MG Oral Tablet 381372 500 MILLIGRAMS TWICE A DAY ORAL 10/25/2021 13:49 Prescription Detail TAKE 500 MILLIGRAMS ORAL TWICE A DAY PARoxetine HCl 20MG Oral Tablet 7758989 20 MILLIGRAMS DAILY ORAL 022 13:49 Prescription Detail TAKE 20 MILLIGRAMS O RAL DAILY Medications Administered During Visit Unknown or Not Available. Encounters Encounter Diagnosis Diagnosis Code Start Date Removal of suture [id number] 11/06/2021 Social History Smoking Status Code Start Date End Date Never smoker [id number] Patient Decision Aids Unknown or Not Available. Discharge Instructions You were admitted to [facility] on 11/06/2021 12:45 with a principal diagnosis of Encounter for removal of sutures You were discharged from [facility] on 11/06/2021 00:00 Should you have any questions prior [...]
--- OUTSIDE RECORDS SUMMARY | 2022-12-28 22:06 | XMS_ITS | CCD ---
Author Name Unknown Address [address] [place] [address] [phone] Organization Unknown Address [address] [place] [address] [phone] Care Team Providers Care Agile Tester Name Role Phone ALICIA WU Attending Physician [phone] Vital Signs Unknown or Not Available. Allergies Allergy Code Allergy Type Reaction Status No Known Allergies 0 No known allergies Active Procedures Unknown or Not Available. History of Immunizations Immunization Code Date COVID-19, mRNA, LNP-S, PF, 100 mcg/0.5mL dose or 50 mcg/0.25mL dose 207 12/08/2020 Problems Problem Code Start Date Resolved Date Status Hypertension 77115939 Active Closed right shoulder dislocation [id number] Active Hypoxia 769427187 Active Results Unknown or Not Available. Active Medications Medication Code Dose Units Frequency Route Modificatio n Start Date/Time Acetaminophen 500MG Oral Tablet 038053 2 TABLET NEEDED THREE TIMES A DAY ORAL 10/25/2021 13:54 Prescription Detail TAKE 2 TABLET ORAL A S NEEDED THREE TIMES A DAY FOR PAIN amLODIPine Besylate 5MG Oral Tablet 454805 5 MILLIGRAMS DAILY ORAL 13:49 Prescription Detail TAKE 5 MILLIGRAMS OR AL DAILY hydroCHLOROthiazide 12.5MG Oral Tablet 873699 12.5 MILLIGRAMS DAILY ORAL 10/25/2021 13:49 Prescription Detail TAKE 12.5 MILLIGRAMS ORAL DAILY Lisinopril 10MG Oral Tablet 493193 10 MILLIGRAMS DAILY ORAL 022 13:49 Prescription Detail TAKE 10 MILLIGRAMS O RAL DAILY Lovastatin 20MG Oral Tablet 741912 20 MILLIGRAMS EVERY EVENING ORAL 10/25/2021 13:49 Prescription Detail TAKE 20 MILLIGRAMS O RAL EVERY EVENING metFORMIN HCl 500MG Oral Tablet 723937 500 MILLIGRAMS TWICE A DAY ORAL 10/25/2021 13:49 Prescription Detail TAKE 500 MILLIGRAMS ORAL TWICE A DAY PARoxetine HCl 20MG Oral Tablet 8791905 20 MILLIGRAMS DAILY ORAL 022 13:49 Prescription Detail TAKE 20 MILLIGRAMS O RAL DAILY Medications Administered During Visit Unknown or Not Available. Encounters Encounter Diagnosis Diagnosis Code Start Date Encounter for other orthopedic aftercare [id number] 12/08/2021 Social History Smoking Status Code Start Date End Date Never smoker [id number] Patient Decision Aids Unknown or Not Available. Discharge Instructions You were admitted to [facility] on 12/08/2021 14:10 with a principal diagnosis of Encounter for other orthopedic aftercare You were discharged from [facility] on 02/02/2022 14:58 Should you have any questions prior to [...]
--- OUTSIDE RECORDS SUMMARY | 2022-12-28 22:06 | XMS_ITS | CCD ---
Author Name Unknown Address [address] [place] [address] [phone] Organization Unknown Address [address] [place] [address] [phone] Care Team Providers Care Tool Grinder Operator Name Role Phone MARCUS CESAR Attending Physician [phone] ELICIA AMIN Er Physician 3 [phone] ELICIA AMIN (Secondary) Physician [phone] WRAUL Bejarano Registered Nurse [phone] EDDY Choi Registered Nurse [phone] WDarci, RAUL Dixon Registered Nurse [phone] G., VIANEY Registered Nurse [phone] Vital Signs Vital Sign Value Unit Date/Time Recent/Initial ? BMI (Body Mass Index) 51.17 kg/m^2 10/22/2021 19: 33 Initial VS Weight Measured 262 lbs 10/22/2021 19:33 Ini tial VS Height 60 in 10/22/2021 19:33 Initial VS BSA (Body Surface Area) 2.24 m^2 10/22/2021 1 9:33 Initial VS BP Systolic 152 mmHg 10/22/2021 19:33 Initial VS BP Diastolic 80 mmHg 10/22/2021 19:33 Initia l VS Respiratory Rate 18 bpm 10/22/2021 19:33 In itial VS Heart Rate 78 bpm 10/22/2021 19:33 Initial VS O2 % BldC Oximetry 98 % 10/22/2021 19:33 Initial VS Body Temperature 36.1 degrees 10/22/2021 19:33 In itial VS BP Systolic 124 mmHg 10/25/2021 11:05 Most Re cent VS BP Diastolic 58 mmHg 10/25/2021 11:05 Most R ecent VS Respiratory Rate 20 bpm 10/25/2021 11:[address] Recent VS Heart Rate 83 bpm 10/25/2021 11:05 Most Rec ent VS O2 % BldC Oximetry 99 % 10/25/2021 11:05 Most Recent VS Body Temperature 36.5 degrees 10/25/2021 11:[address] Recent VS Allergies Allergy Code Allergy Type Reaction Status No Known Allergies 0 No known allergies Active Procedures Unknown or Not Available. History of Immunizations Immunization Code Date COVID-19, mRNA, LNP-S, PF, 100 mcg/0.5mL dose or 50 mcg/0.25mL dose 207 12/08/2020 Problems Problem Code Start Date Resolved Date Status Hypertension 97679196 Active Closed right shoulder dislocation [id number] Active Hypoxia 962141363 Active Hypercholesterolemia 11389285 10/23/2021 Reso lved Results BASIC METABOLIC PANEL (BMP) - Collect Date/Time: 10/25/2021 09:50 Test Name Code Test Result Test Units Test Ref Rang e GLUCOSE 2345-7 144 mg/dL L=70 H=116 BUN 3094-0 18 mg/dL L=6 H=25 CREATININE 2160-0 1.08 mg/dL L=0.51 H=0.95 SODIUM SERUM 2951-2 144 mmol/L L=136 H=145 POTASSIUM SERUM 2823-3 4.2 mmol/L L=3.4 H=5 .2 CHLORIDE SERUM 2075-0 106 mmol/L L=96 H=110 CARBON DIOXIDE (CO2) 2028-9 37 mmol/L L=22 H=34 ANION GAP 87344-3 1.1 mmol/L CALCIUM SERUM 18120-2 9.0 mg/dL L=8.2 H=10. 2 AGE 76 years eGFR (non-Afr.Amer.) 43861-1 50 mL/min eGFR (Afr-Slovenian) 91681-7 60 mL/min BASIC METABOLIC PANEL (BMP) - Collect Date/Time: 10/23/2021 06:30 Test Name Code Test Result Test Units Test Ref Rang e GLUCOSE 2345-7 135 mg/dL L=70 H=116 BUN 3094-0 20 mg/dL L=6 H=25 CREATININE 2160-0 1.32 mg/dL L=0.51 H=0.95 SODIUM SERUM 2951-2 141 mmol/L L=136 H=145 POTASSIUM SERUM 2823-3 5.0 mmol/L L=3.4 H=5 .2 CHLORIDE SERUM 2075-0 104 mmol/L L=96 H=110 CARBON DIOXIDE (CO2) 8-9 32 mmol/L L=22 H=34 ANION GAP 23266-2 5.1 mmol/L CALCIUM SERUM 15311-0 9.0 mg/dL L=8.2 H=10. 2 AGE 76 years eGFR (non-Afr.Amer.) 67711-7 39 mL/min eGFR (Afr-Slovenian) 57080-9 48 mL/min BNP (PRO-B NATRIURETIC PEPTI DE) - Collect Date/Time: 10/22/2021 19:45 Test Name Code Test Result Test Units Test Ref Rang e NT-proBNP 26527-9 165.0 pg/mL L=0.0 H=125 COMPREHENSIVE METABOLIC PANE L (CMP) - Collect Date/Time: 10/22/2021 19:45 Test Name Code Test Result Test Units Test Ref Rang e GLUCOSE 2345-7 154 mg/dL L=70 H=116 BUN 3094-0 22 mg/dL L=6 H=25 CREATININE 2160-0 1.40 mg/dL L=0.51 H=0.95 SODIUM SERUM 2951-2 139 mmol/L L=136 H=145 POTASSIUM SERUM 2823-3 4.6 mmol/L L=3.4 H=5 .2 CHLORIDE SERUM 2075-0 101 mmol/L L=96 H=110 CARBON DIOXIDE (CO2) 8-9 33 mmol/L L=22 H=34 ANION GAP 26639-9 5.3 mmol/L CALCIUM SERUM 06346-9 9.2 mg/dL L=8.2 H=10. 2 BILIRUBIN TOTAL 1975-2 0.3 mg/dL L=0.0 H=1 .3 ALK. PHOS. 6768-6 135 U/L L=46 H=116 SGOT (AST) 1920-8 35 U/L L=15 H=37 SGPT (ALT) 1742-6 31 U/L L=12 H=78 TOTAL PROTEIN 2885-2 8.0 gm/dL L=6.0 H=8.0 ALBUMIN 1751-7 3.6 gm/dL L=3.4 H=5.0 AGE 76 years eGFR (non-Afr.Amer.) 41969-8 37 mL/min eGFR (Afr-Slovenian) 05615-6 44 mL/min GLUCOSE FINGER/HEEL CAPILLAR Y - Collect Date/Time: 10/25/2021 11:53 Test Name Code Test Result Test Units Test Ref Rang e GLUCOSE CAP 129 mg/dL L=70 H=116 GLUCOSE FINGER/HEEL CAPILLAR Y - Collect Date/Time: 10/25/2021 07:55 Test Name Code Test Result Test Units Test Ref Rang e GLUCOSE CAP 106 mg/dL L=70 H=116 GLUCOSE FINGER/HEEL CAPILLAR Y - Collect Date/Time: 10/24/2021 20:15 Test Name Code Test Result Test Units Test Ref Rang e GLUCOSE CAP 145 mg/dL L=70 H=116 GLUCOSE FINGER/HEEL CAPILLAR Y - Collect Date/Time: 10/24/2021 17:04 Test Name Code Test Result Test Units Test Ref Rang e GLUCOSE CAP 103 mg/dL L=70 H=116 GLUCOSE FINGER/HEEL CAPILLAR Y - Collect Date/Time: 10/24/2021 11:42 Test Name Code Test Result Test Units Test Ref Rang e GLUCOSE CAP 113 mg/dL L=70 H=116 GLUCOSE FINGER/HEEL CAPILLAR Y - Collect Date/Time: 10/24/2021 08:17 Test Name Code Test Result Test Units Test Ref Rang e GLUCOSE CAP 121 mg/dL L=70 H=116 GLUCOSE FINGER/HEEL CAPILLAR Y - Collect Date/Time: 10/23/2021 20:13 Test Name Code Test Result Test Units Test Ref Rang e GLUCOSE CAP 164 mg/dL L=70 H=116 GLUCOSE FINGER/HEEL CAPILLAR Y - Collect Date/Time: 10/23/2021 16:39 Test Name Code Test Result Test Units Test Ref Rang e GLUCOSE CAP 127 mg/dL L=70 H=116 TROPONIN HIGH SENSITIVITY* - Collect Date/Time: 10/22/2021 19:45 Test Name Code Test Result Test Units Test Ref Rang e TROPONIN HS 14.1 pg/mL L=0.0 H=60.4 Specimen seq. ADM. N/A TROPONIN-I ADM.* - Collect D ate/Time: 10/22/2021 19:45 Test Name Code Test Result Test Units Test Ref Rang e TROPONIN-I 09887-9 <0.017 ng/mL L=0.000 H=0.06 0 CBC W/ DIFFERENTIAL* - Colle ct Date/Time: 10/25/2021 09:50 Test Name Code Test Result Test Units Test Ref Rang e WBC 6690-2 9.28 th/cmm L=5.00 H=10.00 NEUT % 73.0 % L=40.0 H=80.0 LYMPH % 15.4 % L=10.0 H=50.0 MONO % 46033-0 8.1 % L=2.0 H=12.0 EOS % 2.6 % L=0.0 H=8.0 BASO % 0.5 % L=0.0 H=3.0 IG % 2514-8 0.4 % L=0.0 H=1.1 NRBC % 00894-8 0.0 % L=0.0 H=0.0 NEUT abs count 751-8 6.8 th/cmm L=1.6 H=8. 4 LYMPH abs count 731-0 1.4 th/cmm L=1.5 H=4 .0 MONO abs count 742-7 0.8 th/cmm L=0.2 H=1. 0 EOS abs count 711-2 0.2 th/cmm L=0.0 H=0.5 BASO abs count 704-7 0.1 th/cmm L=0.0 H=0. 2 IG abs count 72197-4 0.0 th/cmm L=0.0 H=0.1 NRBC abs count 20784-0 0.0 mil/cmm L=0.0 H=0. 0 RBC 789-8 3.73 mil/cmm L=3.90 H=5.40 HEMOGLOBIN 718-7 10.6 gm/dL L=12.0 H=16.0 HEMATOCRIT 4544-3 36 % L=37 H=47 MCV 787-2 97 fL L=82 H=92 MCH 785-6 28.4 pg L=27.0 H=31.0 MCHC 786-4 29.3 % L=32.0 H=36.0 RDW-SD 788-0 51.1 fL L=39.0 H=49.0 PLATELET COUNT 777-3 352 th/cmm L=150 H=45 0 CBC W/ DIFFERENTIAL* - Colle ct Date/Time: 10/23/2021 06:30 Test Name Code Test Result Test Units Test Ref Rang e WBC 6690-2 10.38 th/cmm L=5.00 H=10.00 NEUT % 81.1 % L=40.0 H=80.0 LYMPH % 10.7 % L=10.0 H=50.0 MONO % 15199-0 7.4 % L=2.0 H=12.0 EOS % 0.0 % L=0.0 H=8.0 BASO % 0.2 % L=0.0 H=3.0 IG % 2514-8 0.6 % L=0.0 H=1.1 NRBC % 75807-3 0.0 % L=0.0 H=0.0 NEUT abs count 751-8 8.4 th/cmm L=1.6 H=8. 4 LYMPH abs count 731-0 1.1 th/cmm L=1.5 H=4 .0 MONO abs count 742-7 0.8 th/cmm L=0.2 H=1. 0 EOS abs count 711-2 0.0 th/cmm L=0.0 H=0.5 BASO abs count 704-7 0.0 th/cmm L=0.0 H=0. 2 IG abs count 71473-7 0.1 th/cmm L=0.0 H=0.1 NRBC abs count 84879-1 0.0 mil/cmm L=0.0 H=0. 0 RBC 789-8 4.11 mil/cmm L=3.90 H=5.40 HEMOGLOBIN 718-7 11.4 gm/dL L=12.0 H=16.0 HEMATOCRIT 4544-3 39 % L=37 H=47 MCV 787-2 95 fL L=82 H=92 MCH 785-6 27.7 pg L=27.0 H=31.0 MCHC 786-4 29.2 % L=32.0 H=36.0 RDW-SD 788-0 48.5 fL L=39.0 H=49.0 PLATELET COUNT 777-3 441 th/cmm L=150 H=45 0 CBC W/ DIFFERENTIAL* - [facility] ct Date/Time: 10/22/2021 19:45 Test Name Code Test Result Test Units Test Ref Rang e WBC 6690-2 13.64 th/cmm L=5.00 H=10.00 NEUT % 93.5 % L=40.0 H=80.0 LYMPH % 4.6 % L=10.0 H=50.0 MONO % 61555-4 1.4 % L=2.0 H=12.0 EOS % 0.0 % L=0.0 H=8.0 BASO % 0.1 % L=0.0 H=3.0 IG % 2514-8 0.4 % L=0.0 H=1.1 NRBC % 49206-1 0.0 % L=0.0 H=0.0 NEUT abs count 751-8 12.8 th/cmm L=1.6 H=8. 4 LYMPH abs count 731-0 0.6 th/cmm L=1.5 H=4 .0 MONO abs count 742-7 0.2 th/cmm L=0.2 H=1. 0 EOS abs count 711-2 0.0 th/cmm L=0.0 H=0.5 BASO abs count 704-7 0.0 th/cmm L=0.0 H=0. 2 IG abs count 56538-5 0.1 th/cmm L=0.0 H=0.1 NRBC abs count 45373-1 0.0 mil/cmm L=0.0 H=0. 0 RBC 789-8 4.32 mil/cmm L=3.90 H=5.40 HEMOGLOBIN 718-7 12.0 gm/dL L=12.0 H=16.0 HEMATOCRIT 4544-3 40 % L=37 H=47 MCV 787-2 93 fL L=82 H=92 MCH 785-6 27.8 pg L=27.0 H=31.0 MCHC 786-4 29.9 % L=32.0 H=36.0 RDW-SD 788-0 47.7 fL L=39.0 H=49.0 PLATELET COUNT 777-3 427 th/cmm L=150 H=45 0 PT PROTHROMBIN TIME* - Colle ct Date/Time: 10/22/2021 19:45 Test Name Code Test Result Test Units Test Ref Rang e PROTIME 5902-2 10.5 seconds L=9.3 H=11.4 INR 11238-8 1.03 L=2.00 H=3.00 PTT PARTIAL THROMBOPLASTIN T MANUEL* - Collect Date/Time: 10/22/2021 19:45 Test Name Code Test Result Test Units Test Ref Rang e PTT 30868-3 26 seconds L=24 H=32 [facility] COVID FLU RSV GENEXPE RT - Collect Date/Time: 10/22/2021 21:30 Test Name Code Test Result Test Units Test Ref Rang e COVID 67985-0 NEGATIVE N/A Normal: Negati ve INFLUENZA A DNA 29820-2 NEGATIVE N/A Normal: N egative INFLUENZA B DNA 77040-5 NEGATIVE N/A Normal: N egative RSV DNA 54853-3 NEGATIVE N/A Normal: Negati ve Active Medications Medications Administered During Visit Medication Dose Units Frequency Route Date/Time of Last Dose SODIUM CHLORIDE 0.9% 500ML 500 ML X1 10/22/2021 21:19 LISINOPRIL TABLET: 10MG 10 MG DAILY PO 10/25/2021 08:24 MetFORMIN TABLET: 500MG 500 MG BID PO 10/23/2021 21:06 AmLODIPine TABLET: 5MG 5 MG DAILY PO 10/25/2021 08:24 PARoxetine TABLET: 20MG 20 MG DAILY PO 10/25/2021 08:24 hydroCHLOROthiazide TABLET: 25MG 12.5 MG DAILY PO 10/25/2021 08:27 ATORVASTATIN TABLET: 10MG 10 MG BEDTIME PO 10/24/2021 22:23 ACETAMINOPHEN TABLET: 325MG 650 MG PRN Q4H PO 10/23/2021 15:49 SODIUM CHLORIDE 0.9% 1000ML 100 ML CONT 10/23/2021 02:55 INSULIN MDV LISPRO: 1000UNITS/10ML PRN SUBQ 10/25/2021 08 :24 MetFORMIN TABLET: 500MG 500 MG BID WITH FOOD PO 10/25/2021 08:24 Encounters Encounter Diagnosis Diagnosis Code Start Date Hypoxemia R0902 10/23/2021 Social History Smoking Status Code Start Date End Date Never smoker [id number] Patient Decision Aids Unknown or Not Available. Discharge Instructions You were admitted to [facility] on 10/23/2021 00:02 with a principal diagnosis of Hypoxemia You had the following tests done:GLUCOSE FINGER/HEEL CAPILLARYBASIC METABOLIC PANEL (BMP)CBC W/ DIFFERENTIAL*GLUCOSE FINGER/HEEL CAPILLARYGLUCOSE FINGER/HEEL CAPILLARYGLUCOSE FINGER/HEEL CAPILLARYGLUCOSE FINGER/HEEL CAPILLARYGLUCOSE FINGER/HEEL CAPILLARYGLUCOSE FINGER/HEEL CAPILLARYGLUCOSE FINGER/HEEL CAPILLARYBASIC METABOLIC PANEL (BMP)CBC W/ DIFFERENTIAL*[facility] COVID FLU RSV GENEXPERTBNP (PRO- B NATRIURETIC PEPTIDE)CBC W/ DIFFERENTIAL*COMPREHENSIVE METABOLIC PANEL (CMP)PT PROTHROMBIN TIME*PTT PARTIAL THROMBOPLASTIN TIME*TROPONIN HIGH SENSITIVITY*TROPONIN-I ADM.* You were discharged from [facility] on 10/25/2021 14:30 Should you have any questions prior to discharge, please contact a member of your healthcare team. If you have left the hospital and have any questions, please contact your primary care physician. Chief Complaint and Reason For Visit Chief Complaint Date of Onset HYPOXIA 10/23/2021 Function Status Unknown or Not Available. Plan of Care Unknown or Not Available. Referral/Transition of Care Unknown or Not Available.
--- OUTSIDE RECORDS SUMMARY | 2022-12-28 22:06 | XMS_ITS | CCD ---
Author Name Unknown Address [address] [place] [address] [phone] Organization Unknown Address [address] [place] [address] [phone] Care Team Providers Care Indirect Fire Infantryman Name Role Phone ALICIA WU Attending Physician [phone] ALICIA WU Rounding (Secondary) Physician [phone] Vital Signs Unknown or Not Available. Allergies Allergy Code Allergy Type Reaction Status No Known Allergies 0 No known allergies Active Procedures Unknown or Not Available. History of Immunizations Immunization Code Date COVID-19, mRNA, LNP-S, PF, 100 mcg/0.5mL dose or 50 mcg/0.25mL dose 207 12/08/2020 Problems Problem Code Start Date Resolved Date Status Hypertension 50883255 Active Closed right shoulder dislocation [id number] Active Hypoxia 318277800 Active Results Unknown or Not Available. Active Medications Medication Code Dose Units Frequency Route Modificatio n Start Date/Time Acetaminophen 500MG Oral Tablet 459017 2 TABLET NEEDED THREE TIMES A DAY ORAL 10/25/2021 13:54 Prescription Detail TAKE 2 TABLET ORAL A S NEEDED THREE TIMES A DAY FOR PAIN amLODIPine Besylate 5MG Oral Tablet 451607 5 MILLIGRAMS DAILY ORAL 13:49 Prescription Detail TAKE 5 MILLIGRAMS OR AL DAILY hydroCHLOROthiazide 12.5MG Oral Tablet 442358 12.5 MILLIGRAMS DAILY ORAL 10/25/2021 13:49 Prescription Detail TAKE 12.5 MILLIGRAMS ORAL DAILY Lisinopril 10MG Oral Tablet 772562 10 MILLIGRAMS DAILY ORAL 022 13:49 Prescription Detail TAKE 10 MILLIGRAMS O RAL DAILY Lovastatin 20MG Oral Tablet 848856 20 MILLIGRAMS EVERY EVENING ORAL 10/25/2021 13:49 Prescription Detail TAKE 20 MILLIGRAMS O RAL EVERY EVENING metFORMIN HCl 500MG Oral Tablet 531682 500 MILLIGRAMS TWICE A DAY ORAL 10/25/2021 13:49 Prescription Detail TAKE 500 MILLIGRAMS ORAL TWICE A DAY PARoxetine HCl 20MG Oral Tablet 9772845 20 MILLIGRAMS DAILY ORAL 022 13:49 Prescription Detail TAKE 20 MILLIGRAMS O RAL DAILY Medications Administered During Visit Unknown or Not Available. Encounters Encounter Diagnosis Diagnosis Code Start Date Anterior dislocation of shoulder joint [id number] 04/20/2022 Social History Smoking Status Code Start Date End Date Never smoker [id number] Patient Decision Aids Unknown or Not Available. Discharge Instructions You were admitted to [facility] on 04/20/2022 14:27 with a principal diagnosis of Anterior dislocation of right humerus, initial encounter You were discharged from [facility] on 04/20/2022 00:00 Should you have any questions prior [...]
--- OUTSIDE RECORDS SUMMARY | 2022-12-28 22:06 | XMS_ITS | CCD ---
Author Name Unknown Address [address] [place] [address] [phone] Organization Unknown Address [address] [place] [address] [phone] Care Team Providers Care Auto Body Repairer Name Role Phone MARCUS CESAR Attending Physician [phone] Vital Signs Unknown or Not Available. Allergies Allergy Code Allergy Type Reaction Status No Known Allergies 0 No known allergies Active Procedures Unknown or Not Available. History of Immunizations Immunization Code Date COVID-19, mRNA, LNP-S, PF, 100 mcg/0.5mL dose or 50 mcg/0.25mL dose 207 12/08/2020 Problems Problem Code Start Date Resolved Date Status Hypertension 04854886 Active Closed right shoulder dislocation [id number] Active Hypoxia 810395837 Active Hypercholesterolemia 14590912 10/23/2021 Reso lved Results Unknown or Not Available. Active Medications Medication Code Dose Units Frequency Route Modificatio n Start Date/Time Acetaminophen 500MG Oral Tablet 057612 2 TABLET NEEDED THREE TIMES A DAY ORAL 10/25/2021 13:54 Prescription Detail TAKE 2 TABLET ORAL A S NEEDED THREE TIMES A DAY FOR PAIN amLODIPine Besylate 5MG Oral Tablet 117506 5 MILLIGRAMS DAILY ORAL 13:49 Prescription Detail TAKE 5 MILLIGRAMS OR AL DAILY hydroCHLOROthiazide 12.5MG Oral Tablet 891413 12.5 MILLIGRAMS DAILY ORAL 10/25/2021 13:49 Prescription Detail TAKE 12.5 MILLIGRAMS ORAL DAILY Lisinopril 10MG Oral Tablet 281088 10 MILLIGRAMS DAILY ORAL 022 13:49 Prescription Detail TAKE 10 MILLIGRAMS O RAL DAILY Lovastatin 20MG Oral Tablet 996623 20 MILLIGRAMS EVERY EVENING ORAL 10/25/2021 13:49 Prescription Detail TAKE 20 MILLIGRAMS O RAL EVERY EVENING metFORMIN HCl 500MG Oral Tablet 831736 500 MILLIGRAMS TWICE A DAY ORAL 10/25/2021 13:49 Prescription Detail TAKE 500 MILLIGRAMS ORAL TWICE A DAY PARoxetine HCl 20MG Oral Tablet [id number] 20 MILLIGRAMS DAILY ORAL 022 13:49 Prescription Detail TAKE 20 MILLIGRAMS O RAL DAILY Medications Administered During Visit Unknown or Not Available. Encounters Encounter Diagnosis Diagnosis Code Start Date Hypoxemia R0902 10/23/2021 Social History Smoking Status Code Start Date End Date Never smoker [id number] Patient Decision Aids Unknown or Not Available. Discharge Instructions You were admitted to [facility] on 10/23/2021 13:27 with a principal diagnosis of Hypoxemia You were discharged from [facility] on 10/25/2021 13:27 Should you have any questions prior to [...]
== END 2022-12-28 22:04 | disposition home or self-care (01) ==
LOC: NCHCN 22:03
PROVIDERS: PCP Nurse Practitioner Family; Visit Provider Family Medicine
DX: R39.89 Other symptoms and signs involving the genitourinary system (principal)
CPT/HCPCS: 87086

== ENCOUNTER 2023-02-18 11:28 | Outpatient (REF) | payer MEDICARE, SELFPAY ==
[2023-02-18 14:02] LABS: HCT 36.7 % (36.0-46.0); HGB 10.6 g/dL (11.2-15.7); MCH 24.6 pg (27.0-33.0); MCHC 28.9 % (32.0-36.0); MCV 85 fL (80-95); MPV 10.3 fL (8.0-11.0); Platelet Count 487 10^3/uL (130-400); RBC 4.31 10^6/uL (3.93-5.22); RDW 15.9 % (11.7-14.6); RDW-SD 49.1 fL; WBC 9.02 10^3/uL (4.4-10.8)
[2023-02-18 14:26] LABS: Hemoglobin A1C 6.3 % (<5.7)
[2023-02-18 14:54] LABS: ALT 12 U/L (14-59); AST 16 U/L (15-37); Albumin 3.4 g/dL (3.4-5.0); Alkaline Phosphatase 150 U/L (46-116); Anion Gap 6.8 mmol/L (3-11); BUN 14 mg/dL (7-18); Bilirubin, Total 0.2 mg/dL (0.2-1.0); CO2 32.2 mmol/L (21.0-32.0); CREATININE 1.3 mg/dL (0.55-1.02); Calcium 9.2 mg/dL (8.5-10.1); Chloride 103 mmol/L (98-107); Estimated GFR 42.88 (mL/min/1.73m2); Glucose 121 mg/dL (74-106); Potassium 4.3 mmol/L (3.5-5.1); Sodium 142 mmol/L (136-145); TSH 2.19 uIU/mL (0.36-3.74); Total Protein 8.2 g/dL (6.4-8.2)
[2023-02-21 09:33] LABS: Parathyroid Hormone,Intact 149 pg/mL (19-88)
== END 2023-02-18 11:29 | disposition home or self-care (01) ==
LOC: NCHCN 11:28
PROVIDERS: PCP Nurse Practitioner Family; Visit Provider Nurse Practitioner Family
DX: E11.9 Type 2 diabetes mellitus without complications (principal); I10 Essential (primary) hypertension; R09.02 Hypoxemia
CPT/HCPCS: 80053; 85027; 83036; 83970; 84443

== ENCOUNTER 2023-04-05 13:24 | Outpatient (REF) | payer MEDICARE, SELFPAY ==
[2023-04-05 22:25] LABS: COMMENT (LAB VIEW ONLY) 80.65 mg/dL; Microalb ug/mg Crea 13.3 ug/mg Cr
[2023-04-05 22:35] LABS: Iron 31 ug/dL (50-170); Total Iron Binding Capacity 387 ug/dL (250-450); Transferrin Sat 8 % (15-50)
[2023-04-05 22:39] LABS: HCT 38.9 % (36.0-46.0); HGB 11.6 g/dL (11.2-15.7); MCH 24.9 pg (27.0-33.0); MCHC 29.8 % (32.0-36.0); MCV 84 fL (80-95); MPV 11.5 fL (8.0-11.0); Platelet Count 426 10^3/uL (130-400); RBC 4.65 10^6/uL (3.93-5.22); RDW 16.7 % (11.7-14.6); RDW-SD 51.3 fL; WBC 12.15 10^3/uL (4.4-10.8)
[2023-04-05 22:45] LABS: Anion Gap 9.9 mmol/L (3-11); BUN 25 mg/dL (7-18); CO2 30.1 mmol/L (21.0-32.0); CREATININE 1.5 mg/dL (0.55-1.02); Calcium 9.4 mg/dL (8.5-10.1); Chloride 102 mmol/L (98-107); Estimated GFR 35.89 (mL/min/1.73m2); Folate 10.4 ng/mL (8.6-20.0); Glucose 103 mg/dL (74-106); Potassium 4.5 mmol/L (3.5-5.1); Sodium 142 mmol/L (136-145); Vitamin B12 223 pg/mL (193-986)
== END 2023-04-05 13:25 | disposition home or self-care (01) ==
LOC: NCHCN 13:24
PROVIDERS: PCP Nurse Practitioner Family; Visit Provider Nurse Practitioner Family
DX: E11.22 Type 2 diabetes mellitus with diabetic chronic kidney disease (principal); I12.9 Hypertensive chronic kidney disease with stage 1 through stage 4 chronic kidney disease, or unspecified chronic kidney disease; N18.30 Chronic kidney disease, stage 3 unspecified; E21.3 Hyperparathyroidism, unspecified
CPT/HCPCS: 80048; 85027; 82043; 82570; 82607; 82746; 83540; 83550

== ENCOUNTER 2023-10-04 15:40 | Outpatient (REF) | payer MEDICARE, SELFPAY ==
[2023-10-04 15:02] LABS: HCT 40.2 % (36.0-46.0); HGB 11.8 g/dL (11.2-15.7); MCH 25.8 pg (27.0-33.0); MCHC 29.4 % (32.0-36.0); MCV 88 fL (80-95); MPV 10.3 fL (8.0-11.0); Platelet Count 425 10^3/uL (130-400); RBC 4.58 10^6/uL (3.93-5.22); RDW 15.3 % (11.7-14.6); WBC 11.87 10^3/uL (4.4-10.8)
[2023-10-04 15:11] LABS: Iron 32 ug/dL (50-170); Total Iron Binding Capacity 367 ug/dL (250-450); Transferrin Sat 9 % (15-50)
[2023-10-04 15:44] LABS: ALT 14 U/L (14-59); AST 15 U/L (15-37); Albumin 3.3 g/dL (3.4-5.0); Alkaline Phosphatase 152 U/L (46-116); Anion Gap 7.1 mmol/L (3-11); BUN 16 mg/dL (7-18); Bilirubin, Total 0.4 mg/dL (0.2-1.0); CO2 30.9 mmol/L (21.0-32.0); CREATININE 1.3 mg/dL (0.55-1.02); Calcium 9.5 mg/dL (8.5-10.1); Chloride 103 mmol/L (98-107); Estimated GFR 42.62 (mL/min/1.73m2); Ferritin 15 ng/mL (8-252); Glucose 145 mg/dL (74-106); Potassium 4.4 mmol/L (3.5-5.1); Sodium 141 mmol/L (136-145); Vitamin B12 488 pg/mL (193-986)
[2023-10-04 15:55] LABS: Hemoglobin A1C 6.1 % (<5.7)
[2023-10-04 22:07] LABS: Parathyroid Hormone,Intact 157 pg/mL (19-88)
== END 2023-10-04 15:41 | disposition home or self-care (01) ==
LOC: NCHCN 15:40
PROVIDERS: PCP Nurse Practitioner Family; Visit Provider Nurse Practitioner Family
DX: E21.5 Disorder of parathyroid gland, unspecified (principal); E61.1 Iron deficiency; R74.9 Abnormal serum enzyme level, unspecified
CPT/HCPCS: 80053; 85027; 82607; 82728; 83036; 83540; 83550; 83970

== ENCOUNTER 2024-07-10 14:55 | Outpatient (REF) | payer MEDICARE, SELFPAY ==
[2024-07-10 15:15] LABS: HCT 39.9 % (36.0-46.0); HGB 11.9 g/dL (11.2-15.7); MCH 25.9 pg (27.0-33.0); MCHC 29.8 % (32.0-36.0); MCV 87 fL (80-95); MPV 10.6 fL (8.0-11.0); Platelet Count 462 10^3/uL (130-400); RBC 4.59 10^6/uL (3.93-5.22); RDW 15.4 % (11.7-14.6); WBC 9.84 10^3/uL (4.4-10.8)
[2024-07-10 15:54] LABS: ALT 9 U/L (14-59); AST 15 U/L (15-37); Albumin 3.2 g/dL (3.4-5.0); Alkaline Phosphatase 169 U/L (46-116); Anion Gap 8.1 mmol/L (3-11); BUN 14 mg/dL (7-18); Bilirubin, Total 0.57 mg/dL (0.2-1.0); CO2 29.9 mmol/L (21.0-32.0); CREATININE 1.5 mg/dL (0.55-1.02); Calcium 9.4 mg/dL (8.5-10.1); Chloride 101 mmol/L (98-107); Estimated GFR 35.67 (mL/min/1.73m2); Ferritin 23 ng/mL (8-252); Glucose 109 mg/dL (74-106); Potassium 4.1 mmol/L (3.5-5.1); Sodium 139 mmol/L (136-145); Total Protein 7.9 g/dL (6.4-8.2); Vitamin B12 242 pg/mL (193-986); Vitamin D 25 Total 27.7 ng/mL (30-100)
[2024-07-10 15:55] LABS: Iron 42 ug/dL (50-170); Total Iron Binding Capacity 355 ug/dL (250-450); Transferrin Sat 12 % (15-50)
[2024-07-10 17:05] LABS: Hemoglobin A1C 6.1 % (<5.7)
[2024-07-10 17:27] LABS: Microalb ug/mg Crea 17.1 ug/mg Cr
[2024-07-11 10:36] LABS: Parathyroid Hormone,Intact 163 pg/mL (19-88)
== END 2024-07-10 14:56 | disposition home or self-care (01) ==
LOC: NCHCN 14:55
PROVIDERS: PCP Nurse Practitioner Family; Visit Provider Nurse Practitioner Family
DX: N18.30 Chronic kidney disease, stage 3 unspecified (principal); I10 Essential (primary) hypertension; E61.1 Iron deficiency; E55.9 Vitamin D deficiency, unspecified
CPT/HCPCS: 80053; 82306; 85027; 82043; 82570; 82607; 82728; 83036; 83540; 83550; 83970

== ENCOUNTER 2025-05-31 18:27 | Outpatient (REF) | payer MEDICARE, SELFPAY ==
[2025-05-31 21:13] LABS: HCT 39.9 % (36.0-46.0); HGB 12.1 g/dL (11.2-15.7); MCH 26.4 pg (27.0-33.0); MCHC 30.3 % (32.0-36.0); MCV 87 fL (80-95); MPV 10.6 fL (8.0-11.0); Platelet Count 598 10^3/uL (130-400); RBC 4.58 10^6/uL (3.93-5.22); RDW 16.4 % (11.7-14.6); RDW-SD 51.8 fL; WBC 21.45 10^3/uL (4.4-10.8)
[2025-05-31 21:28] LABS: ALT 11 U/L (14-59); AST 29 U/L (15-37); Albumin 2.7 g/dL (3.4-5.0); Alkaline Phosphatase 141 U/L (46-116); Anion Gap 10.1 mmol/L (3-11); BUN 28 mg/dL (7-18); Bilirubin, Total 0.7 mg/dL (0.2-1.0); CO2 26.9 mmol/L (21.0-32.0); Calcium 10.6 mg/dL (8.5-10.1); Chloride 100 mmol/L (98-107); Estimated GFR 30.50 (mL/min/1.73m2); Glucose 97 mg/dL (74-106); Lipase 14 U/L (<78); Potassium 5.3 mmol/L (3.5-5.1); Sodium 137 mmol/L (136-145); Total Protein 7.8 g/dL (6.4-8.2)
[2025-05-31 21:31] LABS: Hemoglobin A1C 5.5 % (<5.7)
== END 2025-05-31 18:28 | disposition home or self-care (01) ==
LOC: NCHCN 18:27
PROVIDERS: PCP Nurse Practitioner Family; Visit Provider Family Medicine
DX: R63.4 Abnormal weight loss (principal); K52.9 Noninfective gastroenteritis and colitis, unspecified
CPT/HCPCS: 80053; 83690; 85027; 83036

== ENCOUNTER 2025-06-04 15:26 | Outpatient (REF) | payer MEDICARE, SELFPAY ==
[2025-06-04 15:15] LABS: Abs Immature Grans 0.15 10^3/uL (0.0-0.06); HCT 38.1 % (36.0-46.0); HGB 11.6 g/dL (11.2-15.7); Immature Grans % 0.9 %; MCH 26.5 pg (27.0-33.0); MCHC 30.4 % (32.0-36.0); MCV 87 fL (80-95); MPV 10.5 fL (8.0-11.0); Platelet Count 457 10^3/uL (130-400); RBC 4.38 10^6/uL (3.93-5.22); RDW 16.4 % (11.7-14.6); RDW-SD 52.0 fL; WBC 17.32 10^3/uL (4.4-10.8)
[2025-06-04 15:36] LABS: ALT 11 U/L (14-59); AST 22 U/L (15-37); Albumin 2.4 g/dL (3.4-5.0); Alkaline Phosphatase 124 U/L (46-116); Anion Gap 9.4 mmol/L (3-11); BUN 25 mg/dL (7-18); Bilirubin, Total 0.5 mg/dL (0.2-1.0); CO2 26.6 mmol/L (21.0-32.0); Calcium 10.0 mg/dL (8.5-10.1); Chloride 101 mmol/L (98-107); Estimated GFR 32.81 (mL/min/1.73m2); Glucose 114 mg/dL (74-106); Magnesium 1.8 mg/dL (1.8-2.4); Potassium 4.3 mmol/L (3.5-5.1); Sodium 137 mmol/L (136-145); Total Protein 7.2 g/dL (6.4-8.2)
== END 2025-06-04 15:27 | disposition home or self-care (01) ==
LOC: NCHCN 15:26
PROVIDERS: PCP Nurse Practitioner Family; Visit Provider Nurse Practitioner Family
DX: N18.30 Chronic kidney disease, stage 3 unspecified (principal); E83.42 Hypomagnesemia; N30.00 Acute cystitis without hematuria
CPT/HCPCS: 80053; 83735; 85025